=== PATIENT | female | born 1950 | race Caucasian/White ===

== ENCOUNTER 2017-04-02 20:08 | Inpatient (IN) | payer MEDICARE ==
[~2017-04-02] VITALS: Ht 160 cm; Wt 80.8 kg
[2017-04-02 19:45] VITALS: BP 93/63
[2017-04-02] MEDS ORDERED: D5%-0.45% NACL 1,000 ML IV SCH (20:45)
[2017-04-02 20:59] VITALS: BP 104/69
[2017-04-02] MEDS ORDERED: PLEASE ENTER HEIGHT AND WEIGHT MC SCH (21:00)
[2017-04-02] MEDS ORDERED: SODIUM CHLORIDE 0.9% 1,000ML IVBOLUS ONE (21:00)
[2017-04-02] MEDS ORDERED: ACETAMINOPHEN 325 MG TABLET PO PRN (21:00)
[2017-04-02] MEDS ORDERED: ONDANSETRON ODT 4 MG PO PRN (21:00)
[2017-04-02 21:29] LABS: ASPARTATE AMINO TRANSFERASE 9 U/L (15-37)
[2017-04-02 21:36] LABS: IS PT STATUS REG ER OR PRE ER? NO
[2017-04-02 21:47] LABS: DAU SCREEN DISCLAIMER
[2017-04-02 21:55] LABS: BLOOD UREA NITROGEN 172 mg/dL (7-18)
[2017-04-02 22:00] VITALS: BP 122/77
[2017-04-02] MEDS ORDERED: SODIUM CHLORIDE 0.9%, 500ML IVBOLUS ONE (22:00)
[2017-04-02] MEDS: SODIUM CHLORIDE 0.9% 1,000 ML IV SCH (22:21)
[2017-04-02] MEDS ORDERED: ALBU8.5H3 INH (22:35)
[2017-04-02] MEDS ORDERED: ONDANSETRON 2MG/ML, 2ML ONE (22:35)
[2017-04-02] MEDS ORDERED: CHOL378P4 PO (22:35)
[2017-04-03] MEDS: ONDANSETRON 2MG/ML, 2ML IVPush PRN ×2 (00:17→21:08)
[2017-04-03 04:32] LABS: ASPARTATE AMINO TRANSFERASE 9 U/L (15-37)
[2017-04-03 04:56] LABS: BLOOD UREA NITROGEN 147 mg/dL (7-18)
[2017-04-03] MEDS: SODIUM CHLORIDE 0.9% 1,000 ML IV SCH (05:31)
[2017-04-03] MEDS ORDERED: HEPARIN 5,000 UNITS/ML, 1ML SQ SCH (09:00)
[2017-04-03 09:39] LABS: IS PT STATUS REG ER OR PRE ER? NO
[2017-04-03] MEDS: LACTATED RINGERS 1,000 ML IV SCH ×2 (15:25→23:53)
[2017-04-03 17:34] LABS: IS PT STATUS REG ER OR PRE ER? NO
[2017-04-03 20:37] VITALS: BP 96/62
[2017-04-03] MEDS ORDERED: OMEP20CA14 PO (20:50)
[2017-04-03] MEDS ORDERED: ESCI20TA PO (20:50)
[2017-04-03] MEDS: HEPARIN 5,000 UNITS/ML, 1ML SQ SCH (21:08)
[2017-04-03] MEDS ORDERED: TEMPLATE NON-FORMULARY MED. (Escitalopram Oxalate** 20 MG) PO PRN (21:30)
[2017-04-03] MEDS ORDERED: OMEPRAZOLE 20 MG CAPSULE.DR PO PRN (21:30)
[2017-04-03] MEDS ORDERED: ALBUTEROL SULFATE 2.5 MG/3 ML NPPB PRN (22:00)
[2017-04-03] MEDS ORDERED: CITALOPRAM 20 MG TABLET PO PRN (22:00)
[2017-04-03] MEDS: CITALOPRAM 20 MG TABLET PO PRN (22:31)
[2017-04-04 02:22] VITALS: BP 91/57
[2017-04-04 04:53] LABS: BLOOD UREA NITROGEN 105 mg/dL (7-18)
[2017-04-04] MEDS ORDERED: MAGNESIUM SULFATE PMX 2GM/50ML 50 ML IV ONE (06:00)
[2017-04-04 06:41] VITALS: BP 107/69
[2017-04-04] MEDS: HEPARIN 5,000 UNITS/ML, 1ML SQ SCH ×2 (08:51→20:30)
[2017-04-04] MEDS: LACTATED RINGERS 1,000 ML IV SCH ×2 (08:56→17:09)
[2017-04-04] MEDS ORDERED: GABAPENTIN 100 MG CAPSULE PO SCH (09:00)
[2017-04-04 18:50] VITALS: BP 114/73
[2017-04-04] MEDS: CITALOPRAM 20 MG TABLET PO PRN (21:49)
[2017-04-05 01:51] VITALS: BP 100/71
[2017-04-05] MEDS: LACTATED RINGERS 1,000 ML IV SCH (01:53)
[2017-04-05 06:08] LABS: BLOOD UREA NITROGEN 57 mg/dL (7-18)
[2017-04-05 07:20] VITALS: BP 120/71
[2017-04-05] MEDS: HEPARIN 5,000 UNITS/ML, 1ML SQ SCH ×2 (10:36→23:05)
[2017-04-05] MEDS ORDERED: LACTATED RINGERS 1,000 ML IV SCH (12:00)
[2017-04-05 12:22] VITALS: BP 107/68
[2017-04-05] MEDS: ONDANSETRON 2MG/ML, 2ML IVPush PRN (13:38)
[2017-04-05 19:09] VITALS: BP 121/74
[2017-04-06 04:25] LABS: BLOOD UREA NITROGEN 44 mg/dL (7-18)
[2017-04-06 06:35] VITALS: BP 121/73
[2017-04-06] MEDS: HEPARIN 5,000 UNITS/ML, 1ML SQ SCH (09:00)
== END 2017-04-06 11:50 | disposition home or self-care (01) | DRG 70 ==
LOC: 3NE 20:08 → CCU 21:41 → 3NW 04-03 10:57
PROVIDERS: ADMIT Family Medicine; ATTEND Family Medicine
PROC: 0T9B70Z Drainage of Bladder with Drainage Device, Via Natural or Artificial Opening (ICD-10-PCS; principal; 2017-04-02)
DX: G93.41 Metabolic encephalopathy (principal); N17.0 Acute kidney failure with tubular necrosis; E87.2 Acidosis; N39.0 Urinary tract infection, site not specified; I12.9 Hypertensive chronic kidney disease with stage 1 through stage 4 chronic kidney disease, or unspecified chronic kidney disease; D64.9 Anemia, unspecified; E78.5 Hyperlipidemia, unspecified; E83.42 Hypomagnesemia; E86.1 Hypovolemia; F32.9 Major depressive disorder, single episode, unspecified; K21.9 Gastro-esophageal reflux disease without esophagitis; M16.0 Bilateral primary osteoarthritis of hip; I95.9 Hypotension, unspecified; R40.2430 Glasgow coma scale score 3-8, unspecified time; N18.3 Chronic kidney disease, stage 3 (moderate); Z79.899 Other long term (current) drug therapy; Z88.2 Allergy status to sulfonamides; Z85.41 Personal history of malignant neoplasm of cervix uteri; Z87.891 Personal history of nicotine dependence; Z90.710 Acquired absence of both cervix and uterus; Z90.49 Acquired absence of other specified parts of digestive tract
CPT/HCPCS: 36415; 70450; 71010; 80048; 80053; 80307; 81003; 82040; 82306; 82550; 83605; 83735; 83880; 83970; 84100; 84145; 84443; 84484; 85025; 85610; 85651; 85730; 87040; 87081; 93005; J1644; J2405; J3475; J7030; J7040; J7120

== ENCOUNTER 2018-04-20 09:49 | Emergency (ER) | payer MEDICARE, OTHER ==
[~2018-04-20] VITALS: Ht 160 cm; Wt 82.1 kg
[~2018-04-20 09:49] MED LIST: ALBU8.5H8 INH; AMLO-262 PO; CALC-525 PO; CHOL378P4 PO; DOXE10CA PO; ESCI20TA PO; FLUT16SP NAS; GABA100C PO; HYDR12.58 PO; MELA10TA PO; OMEP20CA14 PO; ONE A DAY WOMENS PO
[2018-04-20 11:19] LABS: BASOPHILS # (AUTO) 0.03 x10^3/uL (0-0.1); BASOPHILS % (AUTO) 1 % (0-1); EOSINOPHILS # (AUTO) 0.03 x10^3/uL (0-0.4); EOSINOPHILS % (AUTO) 1 % (1-7); LYMPHOCYTES # (AUTO) 0.69 x10^3/uL (1-3.4); LYMPHOCYTES % (AUTO) 17 % (22-44); MD NO; MEAN CORPUSCULAR HEMOGLOBIN 30.3 pg (27.0-34.8); MEAN CORPUSCULAR HGB CONC 33.2 g/dL (32.4-35.8); MEAN CORPUSCULAR VOLUME 91.2 fL (80-100); MEAN PLATELET VOLUME 7.8 fL (7.4-10.4); MONOCYTES # (AUTO) 0.39 x10^3/uL (0.2-0.8); MONOCYTES % (AUTO) 10 % (2-9); NEUTROPHILS # (AUTO) 2.87 x10^3/uL (1.8-6.8); NEUTROPHILS % (AUTO) 72 % (42-75); PLATELET COUNT 249 x10^3/uL (130-400); RED BLOOD COUNT 3.52 x10^6/uL (3.82-5.3); RED CELL DISTRIBUTION WIDTH 13.2 % (9.6-15.2)
[2018-04-20] MEDS ORDERED: SODIUM CHLORIDE 0.9% 1,000ML IVBOLUS ONE (11:30)
[2018-04-20] MEDS ORDERED: MORPHINE SULFATE 4 MG/ML, 1ML IVPush PRN (11:30)
[2018-04-20] MEDS ORDERED: ONDANSETRON 2MG/ML, 2ML IVPush PRN (11:30)
[2018-04-20] MEDS ORDERED: SODIUM CHLORIDE FLUSH 10ML SYR IVF ONE (11:30)
[2018-04-20 11:35] LABS: ALANINE AMINOTRANSFERASE 22 U/L (12-78); ALBUMIN 2.7 g/dL (3.4-5.0); ANION GAP 12 mmol/L (5-15); CALCIUM 9.1 mg/dL (8.5-10.1); CHLORIDE 109 mmol/L (98-107); CREATININE 1.62 mg/dL (0.55-1.02)
[2018-04-20 11:37] LABS: ALKALINE PHOSPHATASE 105 U/L (45-117); BILIRUBIN,TOTAL 0.4 mg/dL (0.2-1.0); TOTAL PROTEIN 6.7 g/dL (6.4-8.2)
[2018-04-20] MEDS ORDERED: ONDANSETRON 2MG/ML, 2ML ONE (11:39)
[2018-04-20] MEDS ORDERED: MORPHINE SULFATE 4 MG/ML, 1ML ONE (11:39)
[2018-04-20] MEDS ORDERED: DOCU-131 PO (11:45)
[2018-04-20] MEDS ORDERED: DESI25TA PO (11:45)
[2018-04-20] MEDS ORDERED: FERR325T18 PO (11:46)
[2018-04-20] MEDS ORDERED: FLUO20CA19 PO (11:47)
[2018-04-20] MEDS ORDERED: OMEP10CA4 PO (11:48)
[2018-04-20] MEDS ORDERED: OXYC-302 PO (11:48)
[2018-04-20] MEDS ORDERED: POLY17PO5 PO (11:48)
[2018-04-20] MEDS ORDERED: TRAZ-136 PO (11:49)
[2018-04-20] MEDS ORDERED: MULT-516 PO (11:49)
[2018-04-20 12:44] LABS: CULTURE INDICATED? YES; MICROSCOPIC INDICATED
[2018-04-20 13:47] VITALS: BP 163/92
== END 2018-04-20 13:51 | disposition home or self-care (01) ==
LOC: ED 13:14
DX: R19.7 Diarrhea, unspecified (principal); R11.10 Vomiting, unspecified; N28.9 Disorder of kidney and ureter, unspecified; I10 Essential (primary) hypertension
CPT/HCPCS: 36415; 80053; 81001; 83690; 85025; 87077; 87086; 96361; 96374; 96375; 99284; J2405; J7030

== ENCOUNTER 2021-03-26 13:04 | Emergency (ER) | payer MEDICARE, OTHER ==
[~2021-03-26] VITALS: Ht 157.5 cm; Wt 71.8 kg
[~2021-03-26 13:04] MED LIST changes: +DESI25TA PO; +DOCU-131 PO; -ESCI20TA PO; +ESCI20TA8 PO; +FERR325T18 PO; +FLUO20CA19 PO; -FLUT16SP NAS; +FLUT16SP24 NAS; -HYDR12.58 PO; +HYDROCHLOROTH12.5 MG PO; +MULT-516 PO; +OMEP10CA5 PO; -OMEP20CA14 PO; +OMEP20CA20 PO; +OXYC1TAB14 PO; +POLY17PO5 PO; +TRAZ50TA66 PO
[2021-03-26 13:06] VITALS: BP 151/78
[2021-03-26] MEDS ORDERED: LIDOCAINE-MPF 1%, 5ML INFIL ONE (13:30)
[2021-03-26] MEDS ORDERED: LIDOCAINE-MPF 1%, 5ML ONE (13:35)
[2021-03-26] MEDS ORDERED: NEOSPORIN OINT. PKT 1 PACKET ONE ×2 (14:18→15:13)
--- NOTE | 2021-03-26 14:19 | NUR ---
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 ERPA AT BEDSIDE FOR SUTURES.
--- NOTE | 2021-03-26 14:42 | NUR ---
ERPA TO CONSULT ORTHO
--- NOTE | 2021-03-26 14:59 | NUR ---
ERPA AT BEDSIDE TO UPDATE PT ON POC.
--- NOTE | 2021-03-26 15:16 | NUR ---
FURS SALESPERSON AT BEDSIDE TO DRESS AND PLACE OPTIFOAM.
== END 2021-03-26 15:33 | disposition home or self-care (01) ==
LOC: ED 14:05
DX: S61.210A Laceration without foreign body of right index finger without damage to nail, initial encounter (principal); I10 Essential (primary) hypertension; K21.9 Gastro-esophageal reflux disease without esophagitis; E78.5 Hyperlipidemia, unspecified; X58.XXXA Exposure to other specified factors, initial encounter; Y93.89 Activity, other specified; Y92.009 Unspecified place in unspecified non-institutional (private) residence as the place of occurrence of the external cause; Y99.8 Other external cause status
CPT/HCPCS: 12042; 99284

== ENCOUNTER → 2021-04-05 | Outpatient (CLI) | payer MEDICARE ==
[2021-04-05 12:47] LABS: ANION GAP 5 mmol/L (5-15); CALCIUM 8.6 mg/dL (8.5-10.1); CHLORIDE 110 mmol/L (98-107); CREATININE 1.44 mg/dL (0.55-1.02)
== END | disposition home or self-care (01) ==
LOC: STAR 11:51
PROVIDERS: ATTEND Orthopaedic Surgery
DX: Z01.818 Encounter for other preprocedural examination (principal); Z01.812 Encounter for preprocedural laboratory examination; Z01.89 Encounter for other specified special examinations; R79.1 Abnormal coagulation profile
CPT/HCPCS: 36415; 80048; 93005